=== PATIENT | female | born 1970 ===

== ENCOUNTER 2016-09-12 12:35 | Emergency (ER) | payer BC ==
--- NOTE | 2016-09-12 12:57 | UC ---
Headache HPI - HPI Summary HPI Summary: right side of neck pain with pain radiating in to head no rash ---has had a stress filled weekend as she got 3 days ago no rash - History Of Current Complaint Hx Obtained From: Patient Hx Last Menstrual Period: 09/01/16 ?: No Onset/Duration: Gradual Onset, Lasting Days - 3, Still Present Onset Of Symptoms: Gradual, Still Present Timing: Constant Character: Pressure Location of Headache: Other: - occipital right side point tenderness Aggravating Factor: Nothing Allevating Factors: Nothing Associated Signs And Symptoms: Positive: Negative. Negative: Neck Pain, Neck Stiffness <Nubia Boyle - Last Filed: 09/12/16 13:27> <Danyell Bains - Last Filed: 09/12/16 13:57> - History Of Current Complaint Chief Complaint: UCHeadache Stated Complaint: HEAD AND NECK PAIN Time Seen by Provider: 09/12/16 12:40 - Allergies/Home Medications Allergies/Adverse Reactions: Allergies Allergy/AdvReac Type Severity Reaction Status Date / Time No Known Allergies Allergy Verified 09/12/16 12:42 Home Medications: Home Medications DOXYcycline CAP(*) [DOXYcycline 100MG CAP(*)] 100 mg PO DAILY 09/12/16 [History Confirmed 09/12/16] PMH/Surg Hx/FS Hx/Imm Hx Previously Healthy: No Neurological History: Migraine - Surgical History Surgical History: Yes Surgery Procedure, Year, and Place: foot sx - Family History Known Family History: Positive: None - Social History Occupation: Employed Full-time Lives: With Family Alcohol Use: Rare Substance Use Type: None Smoking Status (MU): Never Smoked Tobacco <Nubia Boyle - Last Filed: 09/12/16 13:27> Review of Systems Constitutional: Negative Skin: Negative Eyes: Negative ENT: Negative Respiratory: Negative Cardiovascular: Negative Gastrointestinal: Negative Genitourinary: Negative Motor: Negative Neurovascular: Negative Musculoskeletal: Negative Neurological: Headache Psychological: Negative All Other Systems Reviewed And Are Negative: Yes <Nubia Boyle - Last Filed: 09/12/16 13:27> Physical Exam Triage Information Reviewed: Yes Appearance: Well-Appearing, No Pain Distress, Well-Nourished Vital Signs: Initial Vital Signs Temp 99.2 F 09/12/16 12:36 Pulse 68 09/12/16 12:36 Resp 16 09/12/16 12:36 BP 143/85 09/12/16 12:36 Pulse Ox 100 09/12/16 12:36 Vital Signs Reviewed: Yes Eye Exam: Normal Eyes: Positive: Conjunctiva Clear, Other: - eomi, perrla ENT Exam: Normal ENT: Positive: Normal ENT inspection, Hearing grossly normal, Pharynx normal, TMs normal. Negative: Nasal congestion, Nasal drainage, Tonsillar swelling, Tonsillar exudate, Trismus, Other: Dental Exam: Normal Neck exam: Normal Neck: Positive: Supple, Nontender, No Lymphadenopathy, Other: - one area of point tenderness just below occiput on right dide Respiratory Exam: Normal Respiratory: Positive: Chest non-tender, Lungs clear, Normal breath sounds, No respiratory distress, No accessory muscle use Cardiovascular Exam: Normal Cardiovascular: Positive: RRR, No Murmur, Pulses Normal, Brisk Capillary Refill Musculoskeletal Exam: Normal Musculoskeletal: Positive: Strength Intact, ROM Intact, No Edema Neurological Exam: Normal Neurological: Positive: Alert, Muscle Tone Normal, Other: - no pronator dfift able to slide heel down cottrell , negative rhomberg Psychological Exam: Normal Psychological: Positive: Normal Response To Family, Age Appropriate Behavior Skin Exam: Normal <Nubia Boyle - Last Filed: 09/12/16 13:27> Vital Signs: Initial Vital Signs Temp 99.2 F 09/12/16 12:36 Pulse 68 09/12/16 12:36 Resp 16 09/12/16 12:36 BP 143/85 09/12/16 12:36 Pulse Ox 100 09/12/16 12:36 <Danyell Bains - Last Filed: 09/12/16 13:57> Headache Course/Dx - Course Course Of Treatment: flexeril, ibuprofen, rest, observe for rash S?S of shingles follow with pcp - Differential Dx/Diagnosis Differential Diagnosis/HQI/PQRI: Migraine, Tension Headache, Viral Syndrome Provider Diagnoses: Tension Headache, high blood pressure without dx of HTN <Nubia Boyle - Last Filed: 09/12/16 13:27> Discharge <Nubia Boyle - Last Filed: 09/12/16 13:27> <Danyell Bains - Last Filed: 09/12/16 13:57> - Discharge Plan Condition: Stable Disposition: HOME Prescriptions: Cyclobenzaprine TAB* [Flexeril 10 MG TAB*] 10 mg PO TID PRN #15 tab PRN Reason: muscular pain Ibuprofen TAB* [Motrin TAB* 600 MG] 600 mg PO Q6H PRN #30 tab PRN Reason: pain Patient Education Materials: Tension Headache (ED), DASH Eating Plan (ED), Hypertension (ED) Referrals: Isaak Chung MD [Medical Doctor] - 3 Days Attestation Statement User Type: Provider - Pt's medications reviewed at this visit. <Danyell Bains - Last Filed: 09/12/16 13:57>
== END 2016-09-12 13:03 | disposition home or self-care (01) ==
LOC: UCEAST 12:35
DX: G44.209 Tension-type headache, unspecified, not intractable (principal); R03.0 Elevated blood-pressure reading, without diagnosis of hypertension
CPT/HCPCS: 99202; G0463